=== PATIENT | female | born 1960 | race Caucasian/White ===

== ENCOUNTER 2021-04-10 18:07 | Emergency (ER) | payer OTHER ==
[~2021-04-10] VITALS: Ht 172.7 cm; Wt 62.6 kg
[2021-04-10 18:57] VITALS: BP 153/88
[2021-04-10] MEDS ORDERED: NAPROSYN500 M1 PO (19:02)
[2021-04-10] MEDS ORDERED: WELLBUTRIN SR150 MG PO (19:03)
[2021-04-10] MEDS ORDERED: LIPITOR 20 MG T20 M1 PO (19:03)
[2021-04-10] MEDS ORDERED: DESYREL150 MG PO (19:03)
[2021-04-10] MEDS ORDERED: TRIAMTERENE/HCT1 CA1 PO (19:04)
[2021-04-10] MEDS ORDERED: NORCO5 PO (19:06)
== END 2021-04-10 19:19 | disposition home or self-care (01) ==
LOC: M.ERS 18:07
DX: K04.7 Periapical abscess without sinus (principal); I10 Essential (primary) hypertension; E78.00 Pure hypercholesterolemia, unspecified; M19.90 Unspecified osteoarthritis, unspecified site; F41.9 Anxiety disorder, unspecified; Z90.711 Acquired absence of uterus with remaining cervical stump; Z79.899 Other long term (current) drug therapy